=== PATIENT | female | born 1955 | race Caucasian/White ===

== ENCOUNTER 2022-01-14 18:05 | Emergency (ER) | payer MEDICARE, BC ==
[2022-01-14] MEDS ORDERED: Ibuprofen 400 MG Tab PO ONE (19:07)
== END 2022-01-14 20:09 | disposition home or self-care (01) ==
LOC: JP.ED 18:05
DX: S62.144A Nondisplaced fracture of body of hamate [unciform] bone, right wrist, initial encounter for closed fracture (principal); S52.501A Unspecified fracture of the lower end of right radius, initial encounter for closed fracture; W18.30XA Fall on same level, unspecified, initial encounter
CPT/HCPCS: 73110; 99283; A9270